=== PATIENT | female | born 1995 | race Caucasian/White ===

== ENCOUNTER 2017-06-08 21:16 | Emergency (ER) | payer SELFPAY ==
[~2017-06-08] VITALS: Ht 165.1 cm; Wt 101.9 kg
[~2017-06-08 21:16] MED LIST: CLARITIN10 M3 PO; NAPROSYN500 MG PO; SPRINTEC1 EACH PO; ULTRAM50 MG PO; ZOFRAN ODT4 MG PO
[2017-06-08 21:40] LABS: ADD MIUA? YES; BILIRUBIN NEGATIVE; BLOOD NEGATIVE; COLOR STRAW ((YELLOW)); GLUCOSE (STRIP) NEGATIVE; KETONES NEGATIVE; LEUKOCYTES MODERATE; NITRITE NEGATIVE; PROTEIN (STRIP) NEGATIVE; SPECIFIC GRAVITY 1.013 (1.000-1.030); UROBILINOGEN 0.2 MG/DL (0.2-1.0)
[2017-06-08 21:45] LABS: BACTERIA RARE /HPF; EPITHELIAL CELLS 1+ /HPF; MUCUS NONE SEEN /LPF; RED BLOOD CELLS 0-5 /HPF (0-5); UCUL ADDED? NO; WHITE BLOOD CELLS 0-5 /HPF (0-5)
[2017-06-08 21:54] LABS: HEMATOCRIT 39.1 % (36.0-46.0); MCH 31.6 PG (29.0-34.0); MCHC 33.2 G/DL (30.0-36.0); MCV 94.9 FL (83-99); RBC DIS.WIDTH-CV 11.7 % (11.8-14.6); RBC DIS.WIDTH-SD 40.3 % (39-53); RED BLOOD COUNT 4.12 M/uL (3.80-5.20); WHITE BLOOD COUNT 10.4 K/uL (4.1-10.2)
[2017-06-08 22:05] LABS: CHLORIDE 106 mEq/L (99-109); POTASSIUM 3.9 mEq/L (3.7-5.4); SODIUM 142 mEq/L (136-147)
[2017-06-08 22:07] LABS: GLUCOSE 82 mg/dL (70-99)
[2017-06-08 22:08] LABS: ANION GAP 10 MEQ/L (2-14)
[2017-06-08 22:09] LABS: TOTAL BILIRUBIN 0.2 mg/dL (0.0-1.0)
[2017-06-08 22:11] LABS: ALKALINE PHOSPHATASE 75 IU/L (3-129); GFR ESTIMATE (CALCULATED) > 59 mL/min/
[2017-06-08 22:12] LABS: UREA NITROGEN (BUN) 10 mg/dL (9-23)
[2017-06-08 22:19] LABS: QUANTITATIVE HCG < 4.0 MIU/ML
[2017-06-08 22:50] LABS: MEAN PLAT.VOLUME 12.3 uM^3 (9.5-12.4); PLAT.SUFFICIENCY ADEQUATE; PLATELET COUNT 184 K/uL (156-360)
[2017-06-09] MEDS ORDERED: NAPROSYN500 MG PO (00:56)
[2017-06-09] MEDS ORDERED: ZOFRAN4 MG PO (00:56)
[2017-06-09 01:13] VITALS: BP 143/81
== END 2017-06-09 01:14 | disposition home or self-care (01) ==
LOC: EME 21:16
DX: I88.0 Nonspecific mesenteric lymphadenitis (principal); F17.200 Nicotine dependence, unspecified, uncomplicated
CPT/HCPCS: 74177; 80053; 81003; 84702; 85027; 99281; 99284; J2405; J7030